=== PATIENT | male | born 1980 | race Caucasian/White ===

== ENCOUNTER 2021-01-03 21:50 | Emergency (ER) | payer OTHER ==
[2021-01-03 22:34] VITALS: TEMP 98.4; BMI 26.3
[2021-01-03] MEDS ORDERED: SODIUM CHLORIDE 1,000 ML IV STA (22:53)
[2021-01-03] MEDS ORDERED: ACETAMINOPHEN 325 MG TABLET (FP) PO ONE (23:17)
[2021-01-03] MEDS ORDERED: ACETAMINOPHEN 325 MG TABLET (FP) ONE (23:24)
[2021-01-03 23:35] LABS: BASO % 0.5 % (0-2.0); EOS % 2.6 % (0-4.5); HEMATOCRIT 44.3 % (35.4-49); LYMPH % 49.3 % (8-40); MCH 31.8 pg (25.7-33.7); MCHC 33.9 g/dl (32.0-35.9); MEAN CELL VOLUME 93.6 fl (80-96); MEAN PLT VOLUME 8.1 fl (7.5-11.1); MONO % 7.6 % (3.8-10.2); PLATELET COUNT 220 K/MM3 (134-434); RBC 4.74 M/mm3 (4.00-5.60); RDW 13.2 % (11.9-15.9); WHITE BLOOD COUNT 5.3 K/mm3 (4.0-10.0)
[2021-01-03 23:55] LABS: CHLORIDE 108 mmol/L (98-107); POTASSIUM 3.9 mmol/L (3.5-5.1); SODIUM 141 mmol/L (136-145)
[2021-01-03 23:57] LABS: CALCIUM 8.7 mg/dL (8.5-10.1)
[2021-01-03 23:58] LABS: ALBUMIN 4.2 g/dl (3.4-5.0); ANION GAP 8 MMOL/L (8-16); BLOOD UREA NITROGEN 15.5 mg/dL (7-18); CO2 25 mmol/L (21-32); GLUCOSE,RANDOM 93 mg/dL (74-106)
[2021-01-04 00:01] LABS: CREATININE 1.2 mg/dL (0.55-1.3); SGOT/AST 31 U/L (15-37); SGPT/ALT 39 U/L (13-61)
[2021-01-04 00:03] LABS: BILIRUBIN,TOTAL 0.8 mg/dL (0.2-1); TOT PROT 6.9 g/dl (6.4-8.2)
[2021-01-04 00:04] LABS: ALK PHOS 81 U/L (45-117)
[2021-01-04 01:40] VITALS: BP 131/72; PULSE 79
== END 2021-01-04 03:41 | disposition home or self-care (01) ==
LOC: JER 21:50
PROC: 3E0337Z Introduction of Electrolytic and Water Balance Substance into Peripheral Vein, Percutaneous Approach (ICD-10-PCS; principal; 2021-01-03)
DX: R07.89 Other chest pain (principal)
CPT/HCPCS: 36415; 71045-TC-FY; 80053; 82550; 82553; 83735; 84484; 85025; 93005; 93010; 99285-25